=== PATIENT | male | born 1965 | race Caucasian/White ===

== ENCOUNTER 2018-02-21 07:12 | Emergency (ER) | payer OTHER ==
[2018-02-21] MEDS ORDERED: Dexamethasone 10 MG/ML VIAL ONE (08:08)
== END 2018-02-21 08:21 | disposition home or self-care (01) ==
LOC: MADERS 07:12
DX: J06.9 Acute upper respiratory infection, unspecified (principal); E86.0 Dehydration; I10 Essential (primary) hypertension; M19.90 Unspecified osteoarthritis, unspecified site; K21.9 Gastro-esophageal reflux disease without esophagitis; Z79.01 Long term (current) use of anticoagulants; Z79.899 Other long term (current) drug therapy
CPT/HCPCS: 96372; J1100